=== PATIENT | female | born 1940 | race Caucasian/White ===

== ENCOUNTER 2021-11-04 03:29 | Observation (INO) | payer OTHER ==
[2021-11-04 04:52] LABS: BASO % 0.5 % (0-2.0); EOS % 1.4 % (0-4.5); HEMATOCRIT 40.7 % (32.4-45.2); HEMOGLOBIN 13.9 GM/dL (10.7-15.3); LYMPH % 23.7 % (8-40); MCH 31.1 pg (25.7-33.7); MCHC 34.1 g/dl (32.0-36.0); MONO % 7.7 % (3.8-10.2); NEUT % 66.7 % (42.8-82.8); PLATELET COUNT 244 10^3/uL (134-434); RBC 4.47 M/mm3 (3.60-5.2); RDW 14.4 % (11.6-15.6); WHITE BLOOD COUNT 7.7 K/mm3 (4.0-10.0)
[2021-11-04 05:13] LABS: CALCIUM 9.3 mg/dL (8.5-10.1)
[2021-11-04 05:14] LABS: ALBUMIN 3.7 g/dl (3.4-5.0)
[2021-11-04 05:17] LABS: CREATININE 0.9 mg/dL (0.55-1.3)
[2021-11-04 05:19] LABS: BILIRUBIN,TOTAL 0.2 mg/dL (0.2-1); TOT PROT 6.6 g/dl (6.4-8.2)
[2021-11-04] MEDS ORDERED: ACETAMINOPHEN 1000 MG/100 ML BAG IVPB PRN (17:18)
[2021-11-04 18:09] VITALS: BMI 30.4
[2021-11-04] MEDS ORDERED: LOSARTAN POTASSIUM 50 MG TABLET PO ONE (20:42)
[2021-11-04] MEDS: APIXABAN 5 MG TABLET PO SCH (21:18)
[2021-11-04] MEDS ORDERED: ATORVASTATIN CA 10 MG TABLET (FP) PO SCH (22:00)
[2021-11-05 07:27] LABS: BASO % 0.6 % (0-2.0); HEMATOCRIT 39.2 % (32.4-45.2); HEMOGLOBIN 13.6 GM/dL (10.7-15.3); LYMPH % 31.9 % (8-40); MCH 31.6 pg (25.7-33.7); MCHC 34.7 g/dl (32.0-36.0); MEAN CELL VOLUME 91.1 fl (80-96); MONO % 9.9 % (3.8-10.2); NEUT % 55.6 % (42.8-82.8); PLATELET COUNT 240 10^3/uL (134-434); RBC 4.31 M/mm3 (3.60-5.2); RDW 14.3 % (11.6-15.6); WHITE BLOOD COUNT 6.7 K/mm3 (4.0-10.0)
[2021-11-05 07:50] LABS: CALCIUM 8.5 mg/dL (8.5-10.1)
[2021-11-05 07:51] LABS: ALBUMIN 3.5 g/dl (3.4-5.0); BLOOD UREA NITROGEN 22.4 mg/dL (7-18); MAGNESIUM 2.6 mg/dL (1.8-2.4)
[2021-11-05 07:52] LABS: BILIRUBIN,TOTAL 0.5 mg/dL (0.2-1); TOT PROT 6.3 g/dl (6.4-8.2)
[2021-11-05 07:54] LABS: CREATININE 0.8 mg/dL (0.55-1.3)
[2021-11-05] MEDS ORDERED: PROBENECID 500 MG TABLET PO SCH (10:00)
[2021-11-05] MEDS ORDERED: CHOLECALCIFEROL (VIT D3) 1,000 UNIT (25 MCG) TABLET PO SCH (10:15)
[2021-11-05] MEDS: APIXABAN 5 MG TABLET PO SCH (10:25)
[2021-11-05] MEDS ORDERED: VERAPAMIL HCL 180 MG PO SCH (13:00)
[2021-11-05] MEDS ORDERED: PATIENT'S OWN MEDICATION (NON-FORMULARY) (Olmesartan Medoxomil [Olmesartan Medoxomil] 40 M PO SCH (13:00)
[2021-11-05] MEDS ORDERED: LOSARTAN POTASSIUM 50 MG TABLET PO SCH (13:30)
[2021-11-05 14:36] VITALS: BP 143/70; PULSE 67; TEMP 98.1
== END 2021-11-05 17:04 | disposition home or self-care (01) ==
LOC: JER 03:29 → JERBED 06:06 → J4W 17:15
PROVIDERS: ADMIT Internal Medicine; ATTEND Internal Medicine
DX: M54.9 Dorsalgia, unspecified (principal); K44.9 Diaphragmatic hernia without obstruction or gangrene; I10 Essential (primary) hypertension; E78.5 Hyperlipidemia, unspecified; M10.9 Gout, unspecified; R07.89 Other chest pain
CPT/HCPCS: 36415; 71046-TC-FY; 71275-TC; 80053; 83735; 84100; 84484; 85025; 93005; 93010; 93306-TC; 93970-TC; 94010; 99285-25; C9803-CS; G0378; Q9967; U0003; U0005

== ENCOUNTER 2023-07-05 04:30 | Day surgery (SDC) | payer OTHER ==
[2023-06-30 09:51] VITALS: BMI 31.6
[2023-07-05 12:01] VITALS: RESP 18
[2023-07-05 12:12] VITALS: BP 110/64; PULSE 77; TEMP 97.8
== END 2023-07-05 12:15 | disposition home or self-care (01) ==
LOC: JASU-ENDO 04:30
PROVIDERS: ATTEND Internal Medicine Gastroenterology
PROC: 0DBL8ZX Excision of Transverse Colon, Via Natural or Artificial Opening Endoscopic, Diagnostic (ICD-10-PCS; principal; 2023-07-05 11:00)
DX: Z12.11 Encounter for screening for malignant neoplasm of colon (principal); D12.3 Benign neoplasm of transverse colon; K57.30 Diverticulosis of large intestine without perforation or abscess without bleeding
CPT/HCPCS: 88305-TC